=== PATIENT | female | born 1960 | race Caucasian/White ===

== ENCOUNTER 2016-11-01 21:32 | Inpatient (IN) | payer BC, OTHER ==
[~2016-11-01] VITALS: Ht 167.6 cm; Wt 78.0 kg
[2016-11-01] MEDS ORDERED: PROPOFOL 50 ML IV ONE (21:39)
[2016-11-01] MEDS ORDERED: IV NORMAL SALINE 1000ML BAG 1,000 ML IV SCH (21:44)
[2016-11-01] MEDS ORDERED: MORPHINE SULFATE 2 MG/ML DISP.SYRIN. IV PRN (21:45)
[2016-11-01] MEDS ORDERED: PROPOFOL 100 ML IV PRN (21:45)
[2016-11-01] MEDS ORDERED: IV NORMAL SALINE 1000ML BAG 1,000 ML IV ONE (21:45)
[2016-11-01] MEDS ORDERED: ONDANSETRON PF 4 MG/2 ML VIAL. IV PRN (21:45)
[2016-11-01] MEDS ORDERED: FENTANYL PF 100 MCG/2 ML VIAL. IV PRN ×3 (21:45)
[2016-11-01] MEDS ORDERED: PROPOFOL 20 ML IV ONE (21:45)
[2016-11-01 21:50] LABS: BASO % 0 % (0-3); EOS % 3 % (0-3); HEMOGLOBIN 13.4 g/dL (12.0-15.5); LYMPH # 3.3 x10^3/uL (1.0-4.8); LYMPH % 43 % (24-48); MEAN CORPUSCULAR HEMOGLOBIN 32 pg (25-35); MEAN CORPUSCULAR HGB CONC 34 g/dL (31-37); MEAN CORPUSCULAR VOLUME 96 fL (79-100); MONO % 7 % (0-9); NEUT % 47 % (31-73); PLATELET COUNT 200 x10^3/uL (140-400); RED BLOOD COUNT 4.19 x10^6/uL (3.50-5.40); RED CELL DISTRIBUTION WIDTH 12.8 % (11.5-14.5); WHITE BLOOD COUNT 7.8 x10^3/uL (4.0-11.0)
[2016-11-01 22:00] LABS: BILIRUBIN,URINE NEGATIVE (NEG); GLUCOSE,URINE NEGATIVE (NEG); NITRITE,URINE NEGATIVE (NEG); PROTEIN,URINE NEGATIVE (NEG-TRACE); UROBILINOGEN,URINE 0.2 mg/dL (0.2 mg/dL)
[2016-11-01 22:07] LABS: BACTERIA,URINE 0 /HPF (0-FEW); RBC,URINE 0 /HPF (0-2); SQUAMOUS EPITHELIAL CELL,UR FEW /LPF; WBC,URINE 0 /HPF (0-4)
[2016-11-01 22:09] LABS: ANION GAP 14 (6-14); BLOOD UREA NITROGEN 14 mg/dL (7-20); CALCIUM 8.4 mg/dL (8.5-10.1); CARBON DIOXIDE 24 mmol/L (21-32); CHLORIDE 106 mmol/L (98-107); CREATININE 0.7 mg/dL (0.6-1.0); GFR 86.6; GLUCOSE 88 mg/dL (70-99); POTASSIUM 3.2 mmol/L (3.5-5.1); SODIUM 144 mmol/L (136-145)
[2016-11-01 22:12] LABS: ALBUMIN 3.7 g/dL (3.4-5.0); ALK PHOS 61 U/L (46-116); ALT (SGPT) 30 U/L (14-59); AST (SGOT) 25 U/L (15-37); DIRECT BILIRUBIN < 0.1 mg/dL (0.0-0.2); TOTAL BILIRUBIN 0.2 mg/dL (0.2-1.0); TOTAL PROTEIN 7.2 g/dL (6.4-8.2)
[2016-11-01 22:12] LABS: BARBITURATES NEG (NEG); BENZODIAZEPINES POS (NEG); CANNABINOIDS NEG (NEG); COCAINE NEG (NEG); ETHANOL, URINE POS (NEG); METHADONE NEG (NEG); OPIATES NEG (NEG); PHENCYCLIDINE NEG (NEG)
[2016-11-01 22:13] LABS: ETHANOL 221 mg/dL (0-10)
--- NOTE | 2016-11-01 22:44 | RAD ---
PROCEDURE CT head without intravenous contrast. HISTORY Probable overdose, low Botkins coma scale. TECHNIQUE Axial images are obtained of the head from the skull base through the vertex without IV contrast Exposure: One or more of the following individualized dose reduction techniques were utilized for this examination: 1. Automated exposure control. 2. Adjustment of the mA and/or kV according to patient size. 3. Use of iterative reconstruction technique. COMPARISON None. FINDINGS The ventricles are appropriate in size, shape, and location for the patient's age.No obvious intracranial mass, mass-effect, midline shift, hemorrhage or obvious acute infarction is identified.Basilar cisterns are patent. Bone windows demonstrate no acute calvarial abnormality.The visualized paranasal sinuses appear clear. IMPRESSION No acute intracranial process. Please note that CT can be relatively insensitive to acute ischemic infarction for up to 24 hours after symptom onset. Electronically signed by: Arpit Saldaña MD (Nov 01, 2016 22:42:37)
[2016-11-01 23:01] LABS: BASE EXCESS COOX -9 mmol/L (-3-3); CARBON MONOXIDE 2.3 % (0.0-1.9); HCO3 COOX 17 mmol/L (21-28); METHEMOGLOBIN 0.6 % (0.0-1.9); OXYHEMOGLOBIN 96.1 %; PCO2 COOX 38 mmHg (35-46); PH COOX 7.28 (7.35-7.45); PO2 COOX 312 mmHg (75-108); SAT O2 COOX 99 % (92-99); TOTAL HEMOGLOBIN 13.2 g/dL
[2016-11-02] VITALS (26 sets, daily range): BP systolic 94–171; BP diastolic 57–104
--- NOTE | 2016-11-02 00:25 | PHYS DOC ---
Past Medical History Past Medical History: No Pertinent History Past Surgical History: No Surgical History Alcohol Use: None Drug Use: None Adult General Chief Complaint Chief Complaint: OVERDOSE HPI HPI 56-year-old female presenting to the emergency department today after reportedly taking between 10-20 tablets of Xanax. Patient comes in by EMS in an unresponsive state. EMS reports this occurred approximately 20-30 minutes prior to arrival. Reportedly this was an intentional overdose attempt. Later in the patient's emergency department course, the patient's was able to come to the emergency department help enlighten the patient's history of present illness. Apparently she was drinking a lot today and attempted to commit suicide by overdosing on these medications. He denies her having access or any suspicion of salicylate or acetaminophen overdose. Denies any other coingestants present. Onset today. Location generalized. Duration intermittent. No alleviating factors present. Nonradiating. Review of systems is negative for chest pain shortness of breath abdominal pain. Negative for fevers or chills. All other review of systems is negative unless otherwise noted in history of present illness. Review of Systems Review of Systems SEE ABOVE. Current Medications Current Medications Current Medications Medications (Trade) Dose Ordered Sig/[facility] Start Time Stop Time Status Last Admin Dose Admin Fentanyl Citrate (Fentanyl 2ml Vial) 50 mcg PRN Q1HR PRN 11/01/16 21:45 Fentanyl Citrate 25 mcg 25 mcg PRN Q30MIN PRN 11/01/16 21:45 Morphine Sulfate 4 mg PRN Q1HR PRN 11/01/16 21:45 Ondansetron HCl 4 mg 4 mg PRN Q8HRS PRN 11/01/16 21:45 11/02/16 21:44 Propofol (Diprivan) 100 ml @ 0 mls/hr CONT PRN 11/01/16 21:45 11/01/16 23:52 DC 11/01/16 21:50 2.7 MLS/HR Sodium Chloride (Iv Sodium Chloride 0.9% 1000ml Bag) 1,000 ml @ 125 mls/hr Q8H 11/01/16 21:44 11/02/16 21:43 Physical Exam Physical Exam Constitutional: The patient is unresponsive to painful stimuli. She does not open her eyes to painful stimuli. No verbal response to painful stimuli. HEENT: Atraumatic. No depressed skull fracture present. Pupils are equal round and reactive. Moist mucous membranes. Eyes: Pupils are equal round and reactive Neck: Atraumatic, no tenderness, no crepitus to palpation Cardiovascular: Regular rate and rhythm Lungs clear to auscultation Abdomen soft and nontender nondistended. Skin warm and dry no rash Back atraumatic no tenderness no ecchymosis Extremities nontender with normal range of motion Neurologic: GCS of 3, patient is unresponsive to painful stimuli, pupils are equal round and reactive. Psychiatric: Does not make eye contact. Current Patient Data Lab Values Laboratory Tests Test 11/01/16 21:34 11/01/16 21:44 White Blood Count 7.8x10^3/uL (4.0-11.0) Red Blood Count 4.19x10^6/uL (3.50-5.40) Hemoglobin 13.4g/dL (12.0-15.5) Hematocrit 40.0% (36.0-47.0) Mean Corpuscular Volume 96fL (79-100) Mean Corpuscular Hemoglobin 32pg (25-35) Mean Corpuscular Hemoglobin Concent 34g/dL (31-37) Red Cell Distribution Width 12.8% (11.5-14.5) Platelet Count 200x10^3/uL (140-400) Neutrophils (%) (Auto) 47% (31-73) Lymphocytes (%) (Auto) 43% (24-48) Monocytes (%) (Auto) 7% (0-9) Eosinophils (%) (Auto) 3% (0-3) Basophils (%) (Auto) 0% (0-3) Neutrophils # (Auto) 3.7x10^3uL (1.8-7.7) Lymphocytes # (Auto) 3.3x10^3/uL (1.0-4.8) Monocytes # (Auto) 0.5x10^3/uL (0.0-1.1) Eosinophils # (Auto) 0.2x10^3/uL (0.0-0.7) Basophils # (Auto) 0.0x10^3/uL (0.0-0.2) Sodium Level 144mmol/L (136-145) Potassium Level 3.2mmol/L (3.5-5.1) L Chloride Level 106mmol/L (98-107) Carbon Dioxide Level 24mmol/L (21-32) Anion Gap 14 (6-14) Blood Urea Nitrogen 14mg/dL (7-20) Creatinine 0.7mg/dL (0.6-1.0) Estimated GFR (Cockcroft-Gault) 86.6 Glucose Level 88mg/dL (70-99) Serum Osmolality 341mOsm/Kg (279-304) H Calcium Level 8.4mg/dL (8.5-10.1) L Total Bilirubin 0.2mg/dL (0.2-1.0) Direct Bilirubin < 0.1mg/dL (0.0-0.2) Aspartate Amino Transferase (AST) 25U/L (15-37) Alanine Aminotransferase (ALT) 30U/L (14-59) Alkaline Phosphatase 61U/L (46-116) Total Protein 7.2g/dL (6.4-8.2) Albumin 3.7g/dL (3.4-5.0) Lipase 754U/L (73-393) H Salicylates Level 4.4mg/dL (2.8-20.0) Salicylate Last Dose Date Salicylate Last Dose Time Acetaminophen Level < 2mcg/ml (10-30) L Acetaminophen Last Dose Date Acetaminophen Last Dose Time Ethyl Alcohol Level 221mg/dL (0-10) H O2 Saturation 99% (92-99) Arterial Blood pH 7.28 (7.35-7.45) L Arterial Blood pCO2 at Patient Temp 38mmHg (35-46) Arterial Blood pO2 at Patient Temp 312mmHg (75-108) H Arterial Blood HCO3 17mmol/L (21-28) L Arterial Blood Base Excess -9mmol/L (-3-3) L Oxyhemoglobin 96.1% Methemoglobin 0.6% (0.0-1.9) Carbon Monoxide, Quantitative 2.3% (0.0-1.9) H FiO2 100.0 Laboratory Tests 11/01/16 21:34 Laboratory Tests 11/01/16 21:34 EKG EKG Patient has mild prolonged QTC. Otherwise unremarkable. [] Radiology/Procedures Radiology/Procedures [] Course & Med Decision Making Course & Med Decision Making Pertinent Labs and Imaging studies reviewed. (See chart for details) [] 56-year-old female presenting to the emergency department with Xanax overdose. Upon arrival the patient was unresponsive to painful stimuli. She was intubated without any complications. Otherwise the remainder the patient's primary survey was unremarkable. IV access was established. Blood work sent. OG and Wilburn was placed in the emergency department. Clear green liquid return on a OG placement. Clear yellow liquid upon Wilburn placement. Otherwise no evidence of trauma or patches present. Blood glucose within normal limits. Head CT unremarkable. Chest x-ray shows endotracheal tube in good position. Patient placed on the ventilator with a propofol drip. Head of bed placed at 30. I had a long discussion with the family. Family was able to be at bedside in the emergency department. The patient was then admitted to our hospital in the intensive care unit for further evaluation workup and care. I placed a pulmonology consult and the patient will need psychiatric assessment team due to the intention of the overdose. Poison control was contacted. No further recommendations at this time. Dragon Disclaimer Dragon Disclaimer This electronic medical record was generated, in whole or in part, using a voice recognition dictation system. Departure Departure Impression: Primary Impression: Overdose Additional Impressions: Overdose of benzodiazepine Unresponsive Disposition: ADMITTED INPATIENT Condition: STABLE Referrals: TANO ARREGUIN MD (PCP) Critical Care Time Critical care time was 45 minutes exclusive of procedures. Time was spent evaluating the patient, ordering the titration of fluids and oxygenation, discussing with the meaning provider, discussing with family, and documenting. Intubation Procedure Intubation Procedure Intub Indication: Respiratory failure Consent: Unable to give consent due to emergent nature. Medications Used: see nursing note Procedure: The patient was placed in the appropriate position. Intubation was performed by primary visualization directly. 7-1/2 endotracheal tube. Secured at 24 cm at the teeth.. Initial confirmation of placement included bilateral breath sounds, tube fogging, adequate chest rise, adequate pulse oximetry reading. A chest x-ray to verify correct placement of the tube showed appropriate tube position. The patient tolerated the procedure well. Complications: none. Problem Qualifiers ANDREI CLIFFORD MD Nov 02, 2016 00:24
[2016-11-02] MEDS: PROPOFOL 100 ML IV PRN ×5 (01:16→22:11)
[2016-11-02] MEDS ORDERED: ETOMIDATE 20 MG/10 ML VIAL. IV ONE ×2 (04:01→05:00)
[2016-11-02] MEDS ORDERED: SUCCINYLCHOLINE 200 MG/10 ML VIAL. ONE (04:02)
[2016-11-02] MEDS ORDERED: SUCCINYLCHOLINE 200 MG/10 ML VIAL. IV ONE (05:00)
[2016-11-02 05:40] LABS: BASO % 0 % (0-3); EOS % 3 % (0-3); HEMATOCRIT 37.2 % (36.0-47.0); HEMOGLOBIN 12.2 g/dL (12.0-15.5); LYMPH # 2.4 x10^3/uL (1.0-4.8); LYMPH % 38 % (24-48); MEAN CORPUSCULAR HEMOGLOBIN 32 pg (25-35); MEAN CORPUSCULAR HGB CONC 33 g/dL (31-37); MEAN CORPUSCULAR VOLUME 97 fL (79-100); MONO % 9 % (0-9); NEUT % 50 % (31-73); PLATELET COUNT 185 x10^3/uL (140-400); RED BLOOD COUNT 3.84 x10^6/uL (3.50-5.40); RED CELL DISTRIBUTION WIDTH 12.8 % (11.5-14.5); WHITE BLOOD COUNT 6.4 x10^3/uL (4.0-11.0)
[2016-11-02 06:04] LABS: CALCIUM 8.1 mg/dL (8.5-10.1); CREATININE 0.5 mg/dL (0.6-1.0); GFR 127.6; POTASSIUM 3.2 mmol/L (3.5-5.1)
--- NOTE | 2016-11-02 07:15 | PDOC ---
Provider Note Provider Note [id number] acute resp fail od cont vent support until more stable and alert MEMO CISNEROS MD Nov 02, 2016 07:15
[2016-11-02] MEDS: FAMOTIDINE 20 MG/2 ML VIAL IVP SCH ×2 (08:31→20:57)
[2016-11-02] MEDS: CHLORHEXIDINE 0.12% 15 ML MOUTHWASH. MM SCH ×2 (08:31→20:57)
[2016-11-02] MEDS: ENOXAPARIN 40 MG/0.4 ML DISP.SYRIN. SQ SCH (08:31)
--- NOTE | 2016-11-02 08:48 | CONS ---
DATE OF CONSULTATION: 11/02/2016 I was asked to see this 56-year-old lady for acute respiratory failure. HISTORY OF PRESENT ILLNESS: The patient is currently on the ventilator and sedated and is not able to give any information. All of the information was obtained from chart and nursing staff. She is 56 years old. She did drink heavily yesterday and had Xanax her 's. On arrival to the Emergency Room, she was unresponsive. She was intubated. Her urine drug screen is positive for benzodiazepine. Her blood alcohol level is 221. She is currently on the ventilator and is sedated. PAST MEDICAL HISTORY: None per chart. FAMILY HISTORY: Unable to obtain. There is no family available. ALLERGIES: No known drug allergies. MEDICATIONS: Currently, she is on Pepcid, propofol and fentanyl. REVIEW OF SYSTEMS: As mentioned as above. I have discussed with the patient and with RN. The patient is agitated off sedation. Other systems are otherwise negative. PHYSICAL EXAMINATION: GENERAL: This is a well-developed lady. VITAL SIGNS: Her O2 saturation is 98% on 50% FiO2, respiratory rate 16, heart rate 77, blood pressure 138/84, and temperature 97.3. HEENT: Normocephalic, atraumatic. Pupils are equal, round, reactive to light. She is orally intubated. Nose is clear. NECK: There is no JVD, lymphadenopathy or thyromegaly. CARDIOVASCULAR: Regular rate and rhythm. PMI is nondisplaced. CHEST: Inspection is normal. LUNGS: Clear to auscultation, percussion is normal. ABDOMEN: Soft. Bowel sounds are good. There is no mass. EXTREMITIES: There is no edema. LYMPHATICS: There is no lymphadenopathy. NEUROLOGIC: She is sedated. SKIN: Warm. LABORATORY DATA: I reviewed the following lab data: Chest x-ray shows ET tube is in good position. WBC 6.4, hemoglobin 12.2, platelets 185. Sodium 144, potassium 3.2, chloride 109, CO2 of 21, glucose 83, BUN 11, creatinine 0.5. Total bilirubin 0.2, AST 25, ALT 30, alkaline phosphatase 61. ABG last note pH 7.28, pCO2 of 38, pO2 of 312. IMPRESSION: 1. Acute respiratory failure. 2. Drug overdose. 3. Hypokalemia. 4. Elevated blood alcohol level. 5. ? suicidal attempt. PLAN AND RECOMMENDATIONS: 1. Titrate FiO2 to keep O2 saturation 94%. 2. I repeat ABG and chest x-ray and review. 3. Continue ventilator support until the patient is more stable. Ventilator setting was reviewed. 4. Pepcid for stress ulcer prophylaxis. 5. Add Lovenox for DVT prophylaxis. 6. Elevate head of bed. 7. Monitor respiratory status very closely. 8. The patient would need psych consult when she is extubated. 9. The findings and recommendations were discussed with RN and RT. Thank you very much for allowing me to participate in care of this very nice lady. MEMO CISNEROS M.D. DR: SUSAN/manjeet JOB#: [id number] / [id number] NATE
--- NOTE | 2016-11-02 09:02 | RAD ---
Indication: Intubation. Technique: Upright portable chest radiograph was obtained. No comparison is available. Findings: Endotracheal tube tip is within a centimeter of the mary alice. Tube already has been repositioned. Endogastric tube is in place. There is minimal atelectasis in the left lung base. Prominence of the cardiac silhouette may be accentuated by technique. Patient is slightly rotated. Bra was not removed. Impression: Endotracheal tube tip is within a centimeter of the mary alice. This is already repositioned on subsequent exam.
--- NOTE | 2016-11-02 09:03 | RAD ---
Indication: Respiratory failure. Technique: AP portable chest radiograph was obtained upright. Comparison is from one day earlier. Findings: Endotracheal tube is been pulled back slightly, now 2 cm from the mary alice. Endogastric tube is in place. The lungs are clear. The heart is not enlarged. Leads overlie the patient. Impression: Endotracheal tube tip is now 2 cm from the mary alice. Tube could likely be pulled back another 1 to 2 cm.
[2016-11-02] MEDS: POTASSIUM CHLORIDE 10MEQ 100 ML IV SCH ×2 (09:16→10:19)
--- NOTE | 2016-11-02 09:38 | EKG ---
[facility] [address] [place] [address] Test Date: 2016-11-01 Test Time: 22:02:36 Pat Name: CELESTE BENITO Department: Room: [facility] Gender: F [employer]: : 1960 Requested By: CHRISTINE DUNHAM Order Number: [id number] Reading MD: Michelle Paulino Measurements Intervals [place] Rate: 68 P: 34 NH: 138 QRS: 14 QRSD: 94 T: 11 QT: 466 QTc: 496 Interpretive Statements SINUS RHYTHM NORMAL ECG RI6.01 No previous ECG available for comparison Electronically Signed On 11-03-2016 15:06:27 CDT by Michelle Paulino
[2016-11-02 09:46] LABS: HCO3 ABG 19 mmol/L (21-28); PCO2 ABG 31 mmHg (35-46); PH ABG 7.42 (7.35-7.45); PO2 ABG 120 mmHg (75-108); SAT O2 ABG 98 % (92-99)
[2016-11-02] MEDS: POTASSIUM CHLORIDE 30 MEQ in IV 1/2 NORMAL SALINE 1,000 ML IV SCH (10:19)
[2016-11-02] MEDS: MORPHINE SULFATE 4 MG/ML DISP.SYRIN. IV PRN ×2 (10:19→17:57)
[2016-11-02 13:05] LABS: FIO2 ABG 40
[2016-11-03] VITALS (20 sets, daily range): BP systolic 114–181; BP diastolic 69–98
[2016-11-03] MEDS: POTASSIUM CHLORIDE 30 MEQ in IV 1/2 NORMAL SALINE 1,000 ML IV SCH (02:25)
[2016-11-03] MEDS: PROPOFOL 100 ML IV PRN (02:25)
--- NOTE | 2016-11-03 06:17 | ACF ---
Admission Forms Criteria RESPIRATORY FAILURE [facility] Clinical Indications for Admission to Inpatient Care (Place 'X' for any and all applicable criteria): Hospital admission is needed for appropriate care of the patient because of acute respiratory failure or insufficiency as indicated by ANY ONE of the following(1)(2)(3)(4)(5)(6)(7)(8): [X]I. Mechanical ventilation needed (acute invasive or noninvasive) [ ]II. Severe ventilation deficit as indicated by ANY ONE of the following (9) [ ]a) Respiratory acidosis (pH less than 7.32 and partial pressure of carbon dioxide greater than 40 mm Hg (5.3 kPa)) [ ]b) Partial pressure of carbon dioxide greater than 44 mm Hg (5.9 kPa ) (new) [ ]c) Airflow measurements less than 25% of predicted (eg, peak expiratory flow rate less than 100 L/minute) [ ]d) Forced vital capacity less than 15 mL/kg of ideal body weight, or 50% decrease in vital capacity from baseline [ ]III. Noncardiac pulmonary edema not resolving with rapid emergency treatment (8) [ ]IV. Severe respiratory distress as indicated by ANY ONE of the following: [ ]a) Severe tachypnea (respiratory rate greater than 30, greater than 45 for 6-month-old, greater than 60 for ) [ ]b) Severe hypoxemia (partial pressure of oxygen less than 50 mm Hg ( 6.7 kPa) on greater than 50% oxygen or partial pressure of oxygen to FIO2 ratio less than 200) [ ]c) Mental status deterioration from respiratory disease [ ]V. Airway obstruction or inadequate protection [A](10)(11) The original [employer] content created by [employer] has been revised. The portions of the content which have been revised are identified through the use of italic text or in bold, and [employer] has neither reviewed nor approved the modified material. All other unmodified content is copyright [employer]. Please see references footnoted in the original [employer] edition 2016 Admission Criteria Met?: Yes MAEVE VILLAGOMEZ Nov 03, 2016 06:17
[2016-11-03 06:47] LABS: CALCIUM 8.5 mg/dL (8.5-10.1); CREATININE 0.7 mg/dL (0.6-1.0); GFR 86.6; POTASSIUM 3.8 mmol/L (3.5-5.1)
[2016-11-03] MEDS: CHLORHEXIDINE 0.12% 15 ML MOUTHWASH. MM SCH ×2 (06:53→21:00)
[2016-11-03] MEDS: FAMOTIDINE 20 MG/2 ML VIAL IVP SCH ×3 (06:54→21:29)
[2016-11-03] MEDS: ENOXAPARIN 40 MG/0.4 ML DISP.SYRIN. SQ SCH (06:55)
--- NOTE | 2016-11-03 07:05 | PDOC ---
PULMONARY PROGRESS NOTES Subjective on vent, sedated, off sedation follows commands. Vitals Vital Signs Date Time Temp Pulse Resp B/P Pulse Ox O2 Delivery O2 Flow Rate FiO2 11/03/16 06:00 54 16 136/79 100 Ventilator 11/03/16 04:00 97.9 97.9 Comments ros as mentioned as above other sys otherwise neg HEENT: Other (nc at perrl. orally intubated. nose clear) Lungs: Crackles Cardiovascular: S1, S2 Abdomen: Soft, Non-tender, Other (no mass) Extremities: No Edema Skin: Warm Labs Laboratory Tests Test 11/01/16 21:34 11/01/16 21:44 11/01/16 21:54 11/02/16 00:30 White Blood Count 7.8x10^3/uL (4.0-11.0) Red Blood Count 4.19x10^6/uL (3.50-5.40) Hemoglobin 13.4g/dL (12.0-15.5) Hematocrit 40.0% (36.0-47.0) Mean Corpuscular Volume 96fL (79-100) Mean Corpuscular Hemoglobin 32pg (25-35) Mean Corpuscular Hemoglobin Concent 34g/dL (31-37) Red Cell Distribution Width 12.8% (11.5-14.5) Platelet Count 200x10^3/uL (140-400) Neutrophils (%) (Auto) 47% (31-73) Lymphocytes (%) (Auto) 43% (24-48) Monocytes (%) (Auto) 7% (0-9) Eosinophils (%) (Auto) 3% (0-3) Basophils (%) (Auto) 0% (0-3) Neutrophils # (Auto) 3.7x10^3uL (1.8-7.7) Lymphocytes # (Auto) 3.3x10^3/uL (1.0-4.8) Monocytes # (Auto) 0.5x10^3/uL (0.0-1.1) Eosinophils # (Auto) 0.2x10^3/uL (0.0-0.7) Basophils # (Auto) 0.0x10^3/uL (0.0-0.2) Sodium Level 144mmol/L (136-145) Potassium Level 3.2mmol/L (3.5-5.1) Chloride Level 106mmol/L (98-107) Carbon Dioxide Level 24mmol/L (21-32) Anion Gap 14 (6-14) Blood Urea Nitrogen 14mg/dL (7-20) Creatinine 0.7mg/dL (0.6-1.0) Estimated GFR (Cockcroft-Gault) 86.6 Glucose Level 88mg/dL (70-99) Serum Osmolality 341mOsm/Kg (279-304) Calcium Level 8.4mg/dL (8.5-10.1) Total Bilirubin 0.2mg/dL (0.2-1.0) Direct Bilirubin < 0.1mg/dL (0.0-0.2) Aspartate Amino Transf (AST/SGOT) 25U/L (15-37) Alanine Aminotransferase (ALT/SGPT) 30U/L (14-59) Alkaline Phosphatase 61U/L (46-116) Total Protein 7.2g/dL (6.4-8.2) Albumin 3.7g/dL (3.4-5.0) Lipase 754U/L (73-393) Salicylates Level 4.4mg/dL (2.8-20.0) Salicylate Last Dose Date Salicylate Last Dose Time Acetaminophen Level < 2mcg/ml (10-30) Acetaminophen Last Dose Date Acetaminophen Last Dose Time Ethyl Alcohol Level 221mg/dL (0-10) O2 Saturation 99% (92-99) Arterial Blood pH 7.28 (7.35-7.45) Arterial Blood pCO2 at Patient Temp 38mmHg (35-46) Arterial Blood pO2 at Patient Temp 312mmHg (75-108) Arterial Blood HCO3 17mmol/L (21-28) Arterial Blood Base Excess -9mmol/L (-3-3) Oxyhemoglobin 96.1% Methemoglobin 0.6% (0.0-1.9) Carbon Monoxide, Quantitative 2.3% (0.0-1.9) FiO2 100.0 Urine Collection Type Unknown Urine Color Straw Urine Clarity Clear Urine pH 6.0 Urine Specific [place] <=1.005 Urine Protein Negativemg/dL (NEG-TRACE) Urine Glucose (UA) Negativemg/dL (NEG) Urine Ketones (Stick) Negativemg/dL (NEG) Urine Blood Negative (NEG) Urine Nitrite Negative (NEG) Urine Bilirubin Negative (NEG) Urine Urobilinogen Dipstick 0.2mg/dL (0.2 mg/dL) Urine Leukocyte Esterase Negative (NEG) Urine RBC 0/HPF (0-2) Urine WBC 0/HPF (0-4) Urine Squamous Epithelial Cells Few/LPF Urine Bacteria 0/HPF (0-FEW) Urine Opiates Screen Neg (NEG) Urine Methadone Screen Neg (NEG) Urine Barbiturates Neg (NEG) Urine Phencyclidine Screen Neg (NEG) Urine Amphetamine/Methamphetamine Neg (NEG) Urine Benzodiazepines Screen Pos (NEG) Urine Cocaine Screen Neg (NEG) Urine Cannabinoids Screen Neg (NEG) Urine Ethyl Alcohol Pos (NEG) Nasal Screen MRSA (PCR) Negative (Negative) Test 11/02/16 05:15 11/02/16 09:40 11/03/16 06:00 White Blood Count 6.4x10^3/uL (4.0-11.0) Red Blood Count 3.84x10^6/uL (3.50-5.40) Hemoglobin 12.2g/dL (12.0-15.5) Hematocrit 37.2% (36.0-47.0) Mean Corpuscular Volume 97fL (79-100) Mean Corpuscular Hemoglobin 32pg (25-35) Mean Corpuscular Hemoglobin Concent 33g/dL (31-37) Red Cell Distribution Width 12.8% (11.5-14.5) Platelet Count 185x10^3/uL (140-400) Neutrophils (%) (Auto) 50% (31-73) Lymphocytes (%) (Auto) 38% (24-48) Monocytes (%) (Auto) 9% (0-9) Eosinophils (%) (Auto) 3% (0-3) Basophils (%) (Auto) 0% (0-3) Neutrophils # (Auto) 3.2x10^3uL (1.8-7.7) Lymphocytes # (Auto) 2.4x10^3/uL (1.0-4.8) Monocytes # (Auto) 0.6x10^3/uL (0.0-1.1) Eosinophils # (Auto) 0.2x10^3/uL (0.0-0.7) Basophils # (Auto) 0.0x10^3/uL (0.0-0.2) Sodium Level 144mmol/L (136-145) 140mmol/L (136-145) Potassium Level 3.2mmol/L (3.5-5.1) 3.8mmol/L (3.5-5.1) Chloride Level 109mmol/L (98-107) 108mmol/L (98-107) Carbon Dioxide Level 21mmol/L (21-32) 22mmol/L (21-32) Anion Gap 14 (6-14) 10 (6-14) Blood Urea Nitrogen 11mg/dL (7-20) 10mg/dL (7-20) Creatinine 0.5mg/dL (0.6-1.0) 0.7mg/dL (0.6-1.0) Estimated GFR (Cockcroft-Gault) 127.6 86.6 Glucose Level 83mg/dL (70-99) 86mg/dL (70-99) Calcium Level 8.1mg/dL (8.5-10.1) 8.5mg/dL (8.5-10.1) O2 Saturation 98% (92-99) Arterial Blood pH 7.42 (7.35-7.45) Arterial Blood pCO2 at Patient Temp 31mmHg (35-46) Arterial Blood pO2 at Patient Temp 120mmHg (75-108) Arterial Blood HCO3 19mmol/L (21-28) Arterial Blood Base Excess -4mmol/L (-3-3) FiO2 40 Laboratory Tests Test 11/02/16 09:40 11/03/16 06:00 O2 Saturation 98% (92-99) Arterial Blood pH 7.42 (7.35-7.45) Arterial Blood pCO2 at Patient Temp 31mmHg (35-46) Arterial Blood pO2 at Patient Temp 120mmHg (75-108) Arterial Blood HCO3 19mmol/L (21-28) Arterial Blood Base Excess -4mmol/L (-3-3) FiO2 40 Sodium Level 140mmol/L (136-145) Potassium Level 3.8mmol/L (3.5-5.1) Chloride Level 108mmol/L (98-107) Carbon Dioxide Level 22mmol/L (21-32) Anion Gap 10 (6-14) Blood Urea Nitrogen 10mg/dL (7-20) Creatinine 0.7mg/dL (0.6-1.0) Estimated GFR (Cockcroft-Gault) 86.6 Glucose Level 86mg/dL (70-99) Calcium Level 8.5mg/dL (8.5-10.1) Comments cxr reviewed, Endogastric tube is in place. The lungs are clear. The heart is not enlarged. Leads overlie the patient. Impression . IMPRESSION: 1. Acute respiratory failure. 2. Drug overdose. 3. Hypokalemia. 4. Elevated blood alcohol level. 5. ? suicidal attempt. Plan . PLAN AND RECOMMENDATIONS: 1. Titrate FiO2 to keep O2 saturation 94%. 2. elevate hob 3. Continue ventilator support . Ventilator setting was reviewed. sbt, i personally observed her vt, 600 cc, rr 18, abg good. will extubate and monitor 4. Pepcid for stress ulcer prophylaxis. 5. Lovenox for DVT prophylaxis. 6. Elevate head of bed. 7. Monitor respiratory status very closely. 8. The patient would need psych consult when she is extubated. 9. The findings and recommendations were discussed with RN and RT, pts . MEMO CISNEROS MD Nov 03, 2016 07:04
[2016-11-03 08:19] LABS: HCO3 ABG 19 mmol/L (21-28); PCO2 ABG 36 mmHg (35-46); PH ABG 7.35 (7.35-7.45); PO2 ABG 132 mmHg (75-108); SAT O2 ABG 98 % (92-99)
--- NOTE | 2016-11-03 08:48 | PDOC ---
PROGRESS NOTES Chief Complaint Chief Complaint Intentional Xanax OD ASSESSMENT AND PLAN: 1. Intentional OD: PAT team 2. Respir status: extubated this AM 3. Nutrition: currently on PPN. switch to reg diet 4. Prophylaxis: Lovenox, H2B Dispo: pending PAT eval Vitals Vitals Vital Signs Date Time Temp Pulse Resp B/P Pulse Ox O2 Delivery O2 Flow Rate FiO2 11/03/16 08:39 Nasal Cannula 3.0 11/03/16 08:00 99.1 98 24 150/79 100 99.1 Physical Exam Physical Exam perseverating on IRS audit going on General: Alert, Oriented X3, Cooperative Heart: Regular rate Lungs: Clear Abdomen: Normal bowel sounds, No tenderness Extremities: No clubbing, No edema Skin: No rashes Labs LABS Laboratory Tests Test 11/02/16 09:40 11/03/16 06:00 O2 Saturation 98% (92-99) Arterial Blood pH 7.42 (7.35-7.45) Arterial Blood pCO2 at Patient Temp 31mmHg (35-46) Arterial Blood pO2 at Patient Temp 120mmHg (75-108) Arterial Blood HCO3 19mmol/L (21-28) Arterial Blood Base Excess -4mmol/L (-3-3) FiO2 40 Sodium Level 140mmol/L (136-145) Potassium Level 3.8mmol/L (3.5-5.1) Chloride Level 108mmol/L (98-107) Carbon Dioxide Level 22mmol/L (21-32) Anion Gap 10 (6-14) Blood Urea Nitrogen 10mg/dL (7-20) Creatinine 0.7mg/dL (0.6-1.0) Estimated GFR (Cockcroft-Gault) 86.6 Glucose Level 86mg/dL (70-99) Calcium Level 8.5mg/dL (8.5-10.1) Review of Systems Review of Systems throat burning. CHRISTINE DUNHAM MD Nov 03, 2016 08:48
[2016-11-03] MEDS ORDERED: ENOXAPARIN 40 MG/0.4 ML DISP.SYRIN. SQ SCH (09:00)
--- NOTE | 2016-11-03 10:50 | HP ---
ADMIT DATE: 11/01/2016 CHIEF COMPLAINT: Intentional overdose. HISTORY OF PRESENT ILLNESS: The patient is a 56-year-old woman with mild depression, insomnia, on p.r.n. Xanax. She was spending the afternoon outside with her and [id number], drinking beer. According to , the patient ingested about 6 or 7 beers. During that time as sitting outside, she went into the house several times, the last time she came out with a few pills on her tongue, showed them to her and [id number] and washed them down with beer. Mother [id number] immediately tried to induce vomiting, but within 10 minutes the patient actually became obtunded and EMS was called. On arrival in the Emergency room, the patient was completely sedated and was intubated for airway protection. PAST MEDICAL HISTORY: Depression. FAMILY HISTORY: Unknown. SOCIAL HISTORY: She is , living with her . Does not smoke. Drinks beer occasionally, as noted above, 6 or 7 yesterday. Works as a teacher in elementary school level. ALLERGIES: No known drug allergies. HOME MEDICATIONS: Xanax. REVIEW OF SYSTEMS: Unable to obtain secondary to intubation and sedation. PHYSICAL EXAMINATION: VITAL SIGNS: From today show a blood pressure of 153/92, heart rate of 66, respiratory rate at 16. She is afebrile. GENERAL: This is a 56-year-old well-nourished woman, lying in bed, intubated and sedated. HEENT: Shows no scleral icterus. ET in place. LUNGS: Fairly clear. HEART: Has regular rate and rhythm. ABDOMEN: Has positive bowel sounds, soft, nontender. EXTREMITIES: Show no edema. SKIN: Warm, soft and dry without any rash. LABORATORY DATA: CBC from today shows a WBC of 6.4, hemoglobin 12.2, platelets of 185. Chemistries with BUN and creatinine of 11 and 0.5. Potassium at 3.2. LFTs within normal. Lipase is slightly elevated at 754 on ER visit last night. Urine is negative. Tox screen positive for benzos and alcohol. IMAGING STUDY: Chest x-ray shows fairly clear lungs. ASSESSMENT AND PLAN: The patient is a 56-year-old woman with apparent intentional Xanax overdose. Now admitted, intubated for airway protection. We will continue intubation. Dr. Sierra from pulmonology is following and managing vent. Intentional drug overdose, will be assessed once the patient is extubated and responsive. PAT team will be called at that time. The patient is hypokalemic. We will replace IV. CHRISTINE DUNHAM MD DR: UR/nts JOB#: [id number] / [id number] TANO Murillo MD MTDD
[2016-11-03 11:43] LABS: FIO2 ABG 40
[2016-11-04 03:14] VITALS: BP 123/79
[2016-11-04 05:15] LABS: CALCIUM 8.8 mg/dL (8.5-10.1); CREATININE 0.8 mg/dL (0.6-1.0); GFR 74.2; POTASSIUM 4.2 mmol/L (3.5-5.1)
[2016-11-04 07:00] VITALS: BP 132/79
[2016-11-04] MEDS: ENOXAPARIN 40 MG/0.4 ML DISP.SYRIN. SQ SCH (09:00)
[2016-11-04] MEDS: FAMOTIDINE 20 MG/2 ML VIAL IVP SCH (09:00)
[2016-11-04] MEDS: CHLORHEXIDINE 0.12% 15 ML MOUTHWASH. MM SCH (10:53)
[2016-11-04 11:00] VITALS: BP 153/90
--- NOTE | 2016-11-04 12:13 | PDOC ---
PULMONARY PROGRESS NOTES Vitals Vital Signs Date Time Temp Pulse Resp B/P Pulse Ox O2 Delivery O2 Flow Rate FiO2 11/04/16 11:00 98.1 95 18 153/90 93 Room Air 98.1 11/03/16 10:00 3.0 HEENT: Other (nc at perrl. orally intubated. nose clear) Lungs: Crackles Cardiovascular: S1, S2 Abdomen: Soft, Non-tender, Other (no mass) Extremities: No Edema Skin: Warm Labs Laboratory Tests Test 11/03/16 06:00 11/03/16 08:10 11/04/16 03:55 Sodium Level 140mmol/L (136-145) 146mmol/L (136-145) Potassium Level 3.8mmol/L (3.5-5.1) 4.2mmol/L (3.5-5.1) Chloride Level 108mmol/L (98-107) 109mmol/L (98-107) Carbon Dioxide Level 22mmol/L (21-32) 25mmol/L (21-32) Anion Gap 10 (6-14) 12 (6-14) Blood Urea Nitrogen 10mg/dL (7-20) 8mg/dL (7-20) Creatinine 0.7mg/dL (0.6-1.0) 0.8mg/dL (0.6-1.0) Estimated GFR (Cockcroft-Gault) 86.6 74.2 Glucose Level 86mg/dL (70-99) 89mg/dL (70-99) Calcium Level 8.5mg/dL (8.5-10.1) 8.8mg/dL (8.5-10.1) O2 Saturation 98% (92-99) Arterial Blood pH 7.35 (7.35-7.45) Arterial Blood pCO2 at Patient Temp 36mmHg (35-46) Arterial Blood pO2 at Patient Temp 132mmHg (75-108) Arterial Blood HCO3 19mmol/L (21-28) Arterial Blood Base Excess -5mmol/L (-3-3) FiO2 40 Laboratory Tests Test 11/04/16 03:55 Sodium Level 146mmol/L (136-145) Potassium Level 4.2mmol/L (3.5-5.1) Chloride Level 109mmol/L (98-107) Carbon Dioxide Level 25mmol/L (21-32) Anion Gap 12 (6-14) Blood Urea Nitrogen 8mg/dL (7-20) Creatinine 0.8mg/dL (0.6-1.0) Estimated GFR (Cockcroft-Gault) 74.2 Glucose Level 89mg/dL (70-99) Calcium Level 8.8mg/dL (8.5-10.1) Impression . IMPRESSION: 1. Acute respiratory failure. 2. Drug overdose. 3. Hypokalemia. 4. Elevated blood alcohol level. 5. ? suicidal attempt. Plan . Extubated DIPAK BETHEA MD Nov 04, 2016 12:13
[2016-11-04] MEDS ORDERED: SERT50TA PO (13:59)
--- NOTE | 2016-11-04 16:45 | PDOC3 ---
Discharge Summary Visit Information Date of Admission: Nov 01, 2016 Date of Discharge: Nov 04, 2016 Admitting Diagnosis: overdose Final Diagnosis Problems Medical Problems: (1) Overdose Status: Acute (2) Overdose of benzodiazepine Status: Acute (3) Unresponsive Status: Acute Brief Hospital Course Allergies Allergies Coded Allergies Type Severity Reaction Last Updated Verified No Known Drug Allergies 11/01/16 No Vital Signs Vital Signs Date Time Temp Pulse Resp B/P Pulse Ox O2 Delivery O2 Flow Rate FiO2 11/04/16 11:00 98.1 95 18 153/90 93 Room Air 98.1 11/03/16 10:00 3.0 Lab Results Laboratory Tests Test 11/03/16 06:00 11/03/16 08:10 11/04/16 03:55 Sodium Level 140mmol/L (136-145) 146mmol/L (136-145) Potassium Level 3.8mmol/L (3.5-5.1) 4.2mmol/L (3.5-5.1) Chloride Level 108mmol/L (98-107) 109mmol/L (98-107) Carbon Dioxide Level 22mmol/L (21-32) 25mmol/L (21-32) Anion Gap 10 (6-14) 12 (6-14) Blood Urea Nitrogen 10mg/dL (7-20) 8mg/dL (7-20) Creatinine 0.7mg/dL (0.6-1.0) 0.8mg/dL (0.6-1.0) Estimated GFR (Cockcroft-Gault) 86.6 74.2 Glucose Level 86mg/dL (70-99) 89mg/dL (70-99) Calcium Level 8.5mg/dL (8.5-10.1) 8.8mg/dL (8.5-10.1) O2 Saturation 98% (92-99) Arterial Blood pH 7.35 (7.35-7.45) Arterial Blood pCO2 at Patient Temp 36mmHg (35-46) Arterial Blood pO2 at Patient Temp 132mmHg (75-108) Arterial Blood HCO3 19mmol/L (21-28) Arterial Blood Base Excess -5mmol/L (-3-3) FiO2 40 Laboratory Tests Test 11/04/16 03:55 Sodium Level 146mmol/L (136-145) Potassium Level 4.2mmol/L (3.5-5.1) Chloride Level 109mmol/L (98-107) Carbon Dioxide Level 25mmol/L (21-32) Anion Gap 12 (6-14) Blood Urea Nitrogen 8mg/dL (7-20) Creatinine 0.8mg/dL (0.6-1.0) Estimated GFR (Cockcroft-Gault) 74.2 Glucose Level 89mg/dL (70-99) Calcium Level 8.8mg/dL (8.5-10.1) Brief Hospital Course Ms. Mosqueda is a 56 old female, admitted after intentional xanax overdose. She was drinking with reckless intention on , and from the story seemed blackout drunk when she had feeling of anxiety attack and started taking her xanax. She took 2 in front of her maybe after he told her not do so. She was better after 2 days here, not SI any longer, passed PAT team eval She was worried about having xanax available, she takes zoloft for anxiety. I asked her to monitor the usage, and he will keep it in his safe that she does not have access to, and only give her 1 at a time. f/u close with Dr. Choi. safety agreement done with social work here Discharge Information Condition at Discharge: Improved Follow Up: Weeks Disposition/Orders: D/C to Home Scheduled Sertraline Hcl (Zoloft) 1 TAB PO DAILY Patient Instructions Patient Instructions time > 30 min KARLI BONNER MD Nov 04, 2016 16:45
== END 2016-11-04 14:35 | disposition home or self-care (01) | DRG 917 ==
LOC: ER 21:32 → 1 WEST ICU 21:50 → 5 NORTH 11-03 19:48
PROVIDERS: ADMIT Internal Medicine Hematology & Oncology; ATTEND Internal Medicine Hematology & Oncology
PROC: 0BH17EZ Insertion of Endotracheal Airway into Trachea, Via Natural or Artificial Opening (ICD-10-PCS; 2016-11-02)
PROC: 5A1945Z Respiratory Ventilation, 24-96 Consecutive Hours (ICD-10-PCS; principal; 2016-11-03)
DX: T42.4X2A Poisoning by benzodiazepines, intentional self-harm, initial encounter (principal); J96.00 Acute respiratory failure, unspecified whether with hypoxia or hypercapnia; E87.6 Hypokalemia; F32.9 Major depressive disorder, single episode, unspecified; F41.1 Generalized anxiety disorder; G47.00 Insomnia, unspecified; Y90.7 Blood alcohol level of 200-239 mg/100 ml; Z91.5 Personal history of self-harm; Z79.899 Other long term (current) drug therapy
CPT/HCPCS: 31500; 36415; 36600; 51702; 70450; 71010; 80048; 80076; 81001; 82805; 83690; 83930; 85027; 87641; 93005; 94002; 94003; 96365; 96366; 96375; A4314; G0480; G0481; G6038; J0330; J1650; J2270; J2704; J3480; J7030; S0028; 80196; 97116; 99291-25